=== PATIENT | female | born 1990 | race Caucasian/White ===

== ENCOUNTER 2016-08-08 04:22 | Emergency (ER) | payer OTHER ==
[2016-08-08 05:06] LABS: HCG,QUALITATIVE URINE NEGATIVE
[2016-08-08] MEDS ORDERED: ACETAMINOPHEN 325 MG TABLET ONE (05:06)
[2016-08-08] MEDS ORDERED: GABAPENTIN 300 MG CAPSULE ONE (05:06)
[2016-08-08 06:03] LABS: THYROID STIMULATING HORMONE 0.61 uIU/ml (0.34-5.60)
[2016-08-08 06:09] LABS: FREE T4 0.83 ng/dL (0.58-1.64)
== END 2016-08-08 06:49 | disposition home or self-care (01) ==
LOC: ED 04:22
DX: G56.03 Carpal tunnel syndrome, bilateral upper limbs (principal); R63.5 Abnormal weight gain; F32.9 Major depressive disorder, single episode, unspecified; R20.2 Paresthesia of skin; R68.83 Chills (without fever); F17.210 Nicotine dependence, cigarettes, uncomplicated
CPT/HCPCS: 81025; 84439; 84443; 99283 ×2; 36415; A9270 ×2